=== PATIENT | female | born 1960 | race Native Hawaiian/Other Pacific Islander ===

== ENCOUNTER 2020-06-23 14:10 | Emergency (ER) | payer OTHER ==
[~2020-06-23] VITALS: Ht 170.2 cm; Wt 51.7 kg
[2020-06-23 14:12] VITALS: BP 97/49; TEMP 98.8
[2020-06-23] MEDS ORDERED: LORA0.5T17 PO (17:25)
[2020-06-23] MEDS ORDERED: FLONASE AL50 MCG/ACT NAS (17:26)
[2020-06-23] MEDS ORDERED: CEPH500C20 PO (17:27)
[2020-06-23] MEDS ORDERED: LAMICTAL150 MG PO (17:28)
[2020-06-23] MEDS ORDERED: LEVO0.0218 PO (17:31)
[2020-06-23] MEDS ORDERED: MELATONIN3 M3 PO (17:34)
[2020-06-23] MEDS ORDERED: METO-837 PO (17:36)
[2020-06-23] MEDS ORDERED: MIRALAX17 GM PO (17:39)
[2020-06-23] MEDS ORDERED: MIRTAZAPINE7.5 MG PO (17:51)
[2020-06-23] MEDS ORDERED: PAXIL40 MG PO (17:52)
[2020-06-23] MEDS ORDERED: PAXIL10 MG PO (17:53)
[2020-06-23] MEDS ORDERED: POTA10CA3 PO (17:55)
[2020-06-23] MEDS ORDERED: PROBIOTIC 1-2501 CAP PO (17:57)
[2020-06-23] MEDS ORDERED: QUETIAPINE200 MG PO (18:00)
[2020-06-23] MEDS ORDERED: SENNA PLUS 50-81 CAP PO (18:01)
[2020-06-23] MEDS ORDERED: SEROQUEL100 MG PO (18:02)
[2020-06-23] MEDS ORDERED: THERA M PLUS PO (18:03)
[2020-06-23] MEDS ORDERED: TYLENOL325 MG PO (18:04)
[2020-07-01] MEDS ORDERED: QUET300T PO (09:38)
[2020-07-01] MEDS ORDERED: OLANZAPINE5 MG PO (09:38)
[2020-07-01] MEDS ORDERED: AMANTADINE100 MG PO (09:39)
[2020-07-01] MEDS ORDERED: LEVAQUIN250 MG PO (09:39)
== END 2020-06-23 15:50 | disposition other institution (70) ==
LOC: ED 14:10
DX: R45.1 Restlessness and agitation (principal); R46.89 Other symptoms and signs involving appearance and behavior; F22 Delusional disorders; Z11.59 Encounter for screening for other viral diseases; Z04.6 Encounter for general psychiatric examination, requested by authority
CPT/HCPCS: 87635; 93005; 99283; 99285; U0003